=== PATIENT | female | born 2000 | race Caucasian/White ===

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

== ENCOUNTER 2020-09-26 09:33 | Outpatient (CLI) | payer MEDICAID, OTHER ==
--- NOTE | 2020-09-26 10:33 | XRAY Report ---
PROCEDURE: Hand 3 View RT INDICATIONS: RIGHT HAND CONTUSION TECHNIQUE: 3 views of the hand(s) acquired. COMPARISON: None FINDINGS: Bones: No fractures or dislocations. No suspicious bony lesions. Soft tissues: No suspicious soft tissue calcifications. IMPRESSION: No trauma found, source of pain is not identified. Reviewed by: Abraham Cox MD on 09/26/2020 10:32 AM PDT Approved by: Abraham Cox MD on 09/26/2020 10:32 AM PDT Station ID: [id number]
== END 2020-09-26 09:34 | disposition home or self-care (01) ==
LOC: DI.N 09:33
PROVIDERS: ATTEND Nurse Practitioner
DX: S60.221A Contusion of right hand, initial encounter (principal)

== ENCOUNTER 2020-11-05 08:00 | Outpatient (CLI) | payer MEDICAID, OTHER ==
[2020-11-05 18:34] LABS: CREATININE,URINE 144.5 mg/dL; MICROALBUM/CREATININE RATIO,UR 65.7 ug/mg (<30.0); MICROALBUMIN,URINE 9.5 mg/dL (0-300.0)
[2020-11-05 18:52] LABS: CALCIUM 9.3 mg/dL (8.5-10.3); CREATININE 0.8 mg/dL (0.4-1.0)
[2020-11-05 19:02] LABS: ESTIMATED AVERAGE GLUCOSE 111 mg/dL (70-100); HEMOGLOBIN A1c% 5.5 % (4.27-6.07)
== END 2020-11-05 23:59 | disposition home or self-care (01) ==
LOC: LAB.WCP 08:00
PROVIDERS: ATTEND Nurse Practitioner Family
DX: E11.9 Type 2 diabetes mellitus without complications (principal)
CPT/HCPCS: 36415; 80048; 82043; 82570; 83036

== ENCOUNTER 2021-03-09 08:00 | Outpatient (CLI) | payer MEDICAID, OTHER ==
[2021-03-09 18:11] LABS: BUN - BLOOD UREA NITROGEN 9 mg/dL (6-20); CALCIUM 9.6 mg/dL (8.5-10.3); CARBON DIOXIDE - CO2 23 mmol/L (21-32); CHLORIDE 108 mmol/L (101-111); CHOL/HDL RATIO 5.1 (<4.4); CHOLESTEROL 193 mg/dL; CREATININE 0.7 mg/dL (0.4-1.0); GFR - MDRD 107 (>89); GLUCOSE 111 mg/dL (70-100); HDL CHOLESTEROL 38 mg/dL; LDL CHOLESTEROL,CALCULATED 145 mg/dL; LDL/HDL RATIO 3.8 (<4.4); POTASSIUM 4.1 mmol/L (3.5-5.0); SODIUM 141 mmol/L (135-145); TRIGLYCERIDES 51 mg/dL; VLDL CHOLESTEROL 10 mg/dL
[2021-03-09 20:49] LABS: ESTIMATED AVERAGE GLUCOSE 120 mg/dL (70-100); HEMOGLOBIN A1c% 5.8 % (4.27-6.07)
[2021-03-09 22:27] LABS: NEISSERIA GONORRHOEAE DNA NEGATIVE (NEGATIVE); TRICHOMONAS VAGINALIS DNA NEGATIVE (NEGATIVE)
[2021-03-09 22:42] LABS: CHLAMYDIA TRACHOMATIS DNA POSITIVE (NEGATIVE)
[2021-03-10 15:46] LABS: HIV AG/AB 4TH GEN NON-REACTIVE (NON-REACTIVE)
[2021-03-12 16:01] LABS: HSV 1 IGG TYPE SPECIFIC AB <0.90 index; HSV 2 IGG TYPE SPECIFIC AB <0.90 index
== END 2021-03-09 23:59 | disposition home or self-care (01) ==
LOC: LAB.WCP 08:00
PROVIDERS: ATTEND Physician Assistant Medical
DX: Z72.89 Other problems related to lifestyle (principal); Z20.2 Contact with and (suspected) exposure to infections with a predominantly sexual mode of transmission; E11.9 Type 2 diabetes mellitus without complications; Z72.51 High risk heterosexual behavior
CPT/HCPCS: 36415; 80048; 80061; 81599; 83036; 83721; 86592; 86695; 86696; 87389; 87491; 87591; 87661

== ENCOUNTER 2021-04-18 02:00 | Outpatient (CLI) | payer MEDICAID | END 2021-04-18 02:01 | disposition EMS.NT | LOC: EMS 02:00 | DX: M25.561 Pain in right knee (principal) ==

== ENCOUNTER 2021-05-28 10:45 | Outpatient (CLI) | payer MEDICAID ==
--- NOTE | 2021-05-28 14:34 | MRI Report ---
PROCEDURE: Knee RT W/O INDICATIONS: RIGHT KNEE PAIN TECHNIQUE: Noncontrast sagittal PD fast spin echo and T2 fast spin echo with fat saturation, sagittal 3-D gradie nt sequence with fat saturation; coronal T1 spin echo and PD fast spin echo with fat saturation, and axial PD fast spin echo with fat saturation through the knee. COMPARISON: None. FINDINGS: Image quality: Excellent. Menisci: There is a bucket-handle tear of the medial meniscus with displacement of the bucket-handle fragment laterally into the intercondylar notch. Lateral meniscus is intact. Cruciate ligaments: The cruciate ligament is moderately attenuated and demonstrates mild posterior b owing. Posterior cruciate ligament is intact. Medial structures: The medial collateral ligament appears intact. Visualized portions of the pes ans erinus tendons appear normal. No abnormal bursal fluid. Lateral structures: The lateral collateral ligament demonstrates moderate T2 signal elevation at the femoral origin. The long and short heads of the biceps femoris tendon appear intact. The popliteus tendon appears normal. Iliotibial band appears normal. Anterior structures: The quadriceps and patellar tendons appear intact. Patellar alignment is shaun l. No femoral trochlear dysplasia or ventral trochlear prominence. No edema in the infrapatellar fa t pad. Bones and cartilage: Mild ill-defined T2 signal elevation within the medial tibial plateau posteriorl y, consistent with contusion. Joint space: There is a moderate knee joint effusion. No Santiago's cyst. Normal appearing synovial pl icae are incidentally noted. IMPRESSION: 1. Partial thickness anterior cruciate ligament tear. 2. Bucket-handle tear of medial meniscus. 3. Partial-thickness lateral collateral ligament tear. 4. Knee joint effusion. 5. Contusion within the medial tibial plateau. Reviewed by: Anastasia Wall MD on 05/28/2021 2:32 PM PST Approved by: Anastasia Wall MD on 05/28/2021 2:32 PM PST Station ID: [id number]
== END 2021-05-28 10:46 | disposition home or self-care (01) ==
LOC: DI 10:45
PROVIDERS: ATTEND Physician Assistant Medical
DX: S83.511A Sprain of anterior cruciate ligament of right knee, initial encounter (principal); S83.211A Bucket-handle tear of medial meniscus, current injury, right knee, initial encounter; S83.421A Sprain of lateral collateral ligament of right knee, initial encounter; S80.02XA Contusion of left knee, initial encounter; M25.461 Effusion, right knee

== ENCOUNTER 2021-06-30 08:00 | Outpatient (CLI) | payer MEDICAID ==
--- NOTE | 2021-06-30 16:27 | XRAY Report ---
PROCEDURE: Knee 4 View RT INDICATIONS: SPRAIN RIGHT KNEE TECHNIQUE: 4 views of the right knee(s) were acquired. COMPARISON: None. FINDINGS: Bones: No fractures or dislocations. No suspicious bony lesions. Soft tissues: Mild joint effusion. No suspicious soft tissue calcifications. IMPRESSION: Mild effusion. No visualized acute fracture or dislocation. However, occult injury canno t be excluded. Recommend short interval imaging follow-up in 7-10 days as clinically indicated for ad ditional evaluation. Reviewed by: Isabel Handley MD on 06/30/2021 4:25 PM PST Approved by: Isabel Handley MD on 06/30/2021 4:25 PM PST Station ID: [id number]
== END 2021-06-30 23:59 ==
LOC: DI.WOS 08:00
PROVIDERS: ATTEND Physician Assistant
DX: M25.461 Effusion, right knee (principal)

== ENCOUNTER 2021-08-28 08:00 | Outpatient (CLI) | payer MEDICAID ==
[2021-08-28 20:39] LABS: BACTERIAL VAGINOSIS DNA POSITIVE (NEGATIVE); CANDIDA GLABRATA DNA NEGATIVE (NEGATIVE); CANDIDA GROUP DNA POSITIVE (NEGATIVE); CANDIDA KRUSEI DNA NEGATIVE (NEGATIVE); TRICHOMONAS VAGINALIS DNA NEGATIVE (NEGATIVE)
[2021-08-28 21:24] LABS: CHLAMYDIA TRACHOMATIS DNA NEGATIVE (NEGATIVE); NEISSERIA GONORRHOEAE DNA NEGATIVE (NEGATIVE); TRICHOMONAS VAGINALIS DNA NEGATIVE (NEGATIVE)
== END 2021-08-28 23:59 | disposition home or self-care (01) ==
LOC: LAB.WCP 08:00
PROVIDERS: ATTEND Physician Assistant
DX: N89.8 Other specified noninflammatory disorders of vagina (principal)
CPT/HCPCS: 87491; 87591; 87661; 87801

== ENCOUNTER 2021-11-27 18:20 | Outpatient (CLI) | payer MEDICAID ==
[2021-11-27 23:08] LABS: CHLAMYDIA TRACHOMATIS DNA NEGATIVE (NEGATIVE); NEISSERIA GONORRHOEAE DNA NEGATIVE (NEGATIVE); TRICHOMONAS VAGINALIS DNA NEGATIVE (NEGATIVE)
== END 2021-11-27 18:21 | disposition home or self-care (01) ==
LOC: LAB 18:20
PROVIDERS: ATTEND Physician Assistant Medical
DX: Z20.2 Contact with and (suspected) exposure to infections with a predominantly sexual mode of transmission (principal)
CPT/HCPCS: 87491; 87591; 87661

== ENCOUNTER 2021-12-15 15:54 | Outpatient (CLI) | payer MEDICAID ==
--- NOTE | 2021-12-16 17:59 | Ultrasound Report ---
PROCEDURE: Pelvic w/Transvaginal INDICATIONS: [place]OR[place] TECHNIQUE: Real-time scanning was performed of the pelvic organs, with image documentation. Additional endovagi nal scanning was necessary due to incomplete visualization of the adnexal and endometrial structures by transabdominal scanning. COMPARISON: None. FINDINGS: No pathologic free abdominal or pelvic fluid. Uterus: Uterus is retroverted, normal in size at 8.1 x 3.4 x 4.6 cm. The endometrium measures 8.8 m m in combined thickness. Ovaries: Right ovary measures 3.3 x 2.8 x 2.4 cm with a ovarian volume of 11.5 mL. Left ovary measur es 3.5 x 2.1 x 2.4 cm with an ovarian volume of 9.4 mL. Both ovaries have greater than 12 small folli cles, which can support a clinical diagnosis of polycystic ovary syndrome IMPRESSION: 1. The appearance of the ovaries with support a clinical diagnosis of polycystic ovary syndrome. 2. Unremarkable appearance of the uterus. Reviewed by: Mathew Beebe MD on 12/16/2021 5:57 PM PDT Approved by: Mathew Beebe MD on 12/16/2021 5:57 PM PDT Station ID: [id number]
== END 2021-12-15 15:55 | disposition home or self-care (01) ==
LOC: DI 15:54
PROVIDERS: ATTEND Physician Assistant Medical
DX: N92.1 Excessive and frequent menstruation with irregular cycle (principal)

== ENCOUNTER 2022-07-28 08:53 | Outpatient (CLI) | payer MEDICAID ==
[2022-07-28 11:58] LABS: ALBUMIN 4.1 g/dL (3.2-5.5); ALKALINE PHOSPHATASE 52 IU/L (42-121); ALT ALANINE AMINOTRANSFERASE 28 IU/L (10-60); AST ASPARTATE AMINOTRANSFERASE 21 IU/L (10-42); BILIRUBIN,TOTAL 0.8 mg/dL (0.2-1.0); BUN - BLOOD UREA NITROGEN 12 mg/dL (6-20); CALCIUM 9.5 mg/dL (8.5-10.3); CARBON DIOXIDE - CO2 27 mmol/L (21-32); CHLORIDE 102 mmol/L (101-111); CHOL/HDL RATIO 4.5 (<4.4); CHOLESTEROL 166 mg/dL; CREATININE 0.8 mg/dL (0.4-1.0); GFR - MDRD 90 (>89); GLUCOSE 121 mg/dL (70-100); HDL CHOLESTEROL 37 mg/dL; LDL CHOLESTEROL,CALCULATED 110 mg/dL; POTASSIUM 4.4 mmol/L (3.5-5.0); SODIUM 139 mmol/L (135-145); TOTAL PROTEIN 8.1 g/dL (6.7-8.2); TRIGLYCERIDES 97 mg/dL; VLDL CHOLESTEROL 19 mg/dL
[2022-07-28 20:47] LABS: ESTIMATED AVERAGE GLUCOSE 137 mg/dL (70-100); HEMOGLOBIN A1c% 6.4 % (4.27-6.07)
== END 2022-07-28 08:54 | disposition home or self-care (01) ==
LOC: LAB.N 08:53
PROVIDERS: ATTEND Physician Assistant Medical
DX: E11.9 Type 2 diabetes mellitus without complications (principal)
CPT/HCPCS: 36415; 80053; 80061; 83036; 83721

== ENCOUNTER 2022-09-07 16:50 | Outpatient (CLI) | payer MEDICAID | END 2022-09-07 23:59 | disposition home or self-care (01) | LOC: LAB.WCP 16:50 | PROVIDERS: ATTEND Physician Assistant Medical | DX: R35.0 Frequency of micturition (principal) | CPT/HCPCS: 87086; 87181 ==

== ENCOUNTER 2022-09-13 18:58 | Emergency (ER) | payer MEDICAID ==
[2022-09-13 20:03] LABS: B. PARAPERTUSSIS- RESP PCR PAN NOT DETECTED; B. PERTUSSIS- RESP PCR PANEL NOT DETECTED; C. PNEUMONIAE- RESP PCR PANEL NOT DETECTED; CORONAVIRUS 229E-RESP PCR NOT DETECTED; CORONAVIRUS HKU1-RESP PCR NOT DETECTED; CORONAVIRUS NL63-RESP PCR NOT DETECTED; CORONAVIRUS OC43-RESP PCR NOT DETECTED; HUMAN METAPNEUMOVIRUS NOT DETECTED; INFLUENZA A- RESP PCR PANEL NOT DETECTED; INFLUENZA B - RESP PCR PANEL NOT DETECTED; M. PNEUMONIAE- RESP PCR PANEL NOT DETECTED; PARAINFLUENZA VIRUS 1 NOT DETECTED; PARAINFLUENZA VIRUS 2 NOT DETECTED; PARAINFLUENZA VIRUS 3 NOT DETECTED; PARAINFLUENZA VIRUS 4 NOT DETECTED; RHINOVIRUS/ENTEROVIRUS DETECTED; RSV- RESP PCR PANEL NOT DETECTED; SARS-CoV-2 -RESP PCR PANEL NOT DETECTED
[2022-09-13 20:16] LABS: BILIRUBIN,URINE NEGATIVE (NEGATIVE); GLUCOSE, URINE (UA) NEGATIVE (NEGATIVE); KETONES,URINE (UA) NEGATIVE (NEGATIVE); LEUKOCYTE ESTERASE, URINE MODERATE (NEGATIVE); NITRITE,URINE NEGATIVE (NEGATIVE); OCCULT BLOOD,URINE LARGE (NEGATIVE); PROTEIN,URINE 100 mg/dL (NEGATIVE); UROBILINOGEN,URINE 0.2 (NORMAL) E.U./dL (NORMAL)
[2022-09-13 20:18] LABS: CLARITY,URINE CLOUDY (CLEAR); HCG UR QUAL NEGATIVE
[2022-09-13 20:33] LABS: BACTERIA,URINE Many /HPF (None Seen); RBC,URINE TNTC /HPF (0-5); SQUAMOUS EPITHELIAL CELL,UR FEW Squamous (<= Few); WBC CLUMPS,URINE PRESENT; WBC,URINE >25 /HPF (0-5)
--- NOTE | 2022-09-13 21:59 | ED Physician Documentation ---
History of Present Illness - Stated complaint Stated Complaint: BODYACHES/PX - Chief complaint Chief Complaint: General - History obtained from History obtained from: Patient - Additonal information Additional information: HPI from patient. Patient complains of 1 to 2 days of urinary frequency, burning dysuria, generalized myalgias, generalized headache. She has not measured her temperature at home but has felt as if she has a fever with chills alternating with sweats. Patient says she was recently treated for chlamydia with one-time dose of 1 g of Zithromax. She was given this medication 2 days ago although she says that test was performed 1 or 2 weeks ago. Review of Systems Constitutional: reports: Chills, Myalgias, Sweats Respiratory: denies: Dyspnea, Cough GI: reports: Reviewed and negative : reports: Dysuria, Frequency Musculoskeletal: denies: Back pain Neurologic: reports: Headache PD PAST MEDICAL HISTORY - Past Medical History Past Medical History: Yes Endocrine/Autoimmune: Type 2 diabetes Derm: Other - Past Surgical History Past Surgical History: No - Present Medications Home Medications: Ambulatory Orders Medication Instructions Recorded Confirmed Medroxyprogesterone Acetate 150 mg IM ONCE 06/27/19 06/27/19 [Depo-Provera] Metformin HCl [Metformin HCl ER] 2,000 mg PO DAILY 06/27/19 06/27/19 Nitrofurantoin [Macrobid] 100 mg PO BID #10 cap 09/13/22 - Allergies Allergies/Adverse Reactions: Allergies Allergy/AdvReac Type Severity Reaction Status Date / Time No Known Drug Allergies Allergy Verified 09/13/22 19:02 - Social History Does the pt smoke?: No Smoking Status: Never smoker PD ED PE NORMAL - Vitals Vital signs reviewed: Yes - General General: Alert and oriented X 3, No acute distress, Well developed/nourished - HEENT HEENT: Moist mucous membranes - Neck Neck: Supple, no meningeal sign - Cardiac Cardiac: RRR, No murmur - Respiratory Respiratory: No respiratory distress, Clear bilaterally - Abdomen Abdomen: Soft, Non tender - Back Back: No CVA TTP Results - Vitals Vitals: Vital Signs - 24 hr 09/13/22 09/13/22 09/13/22 19:02 20:17 22:00 Temperature 38.0 C H Heart Rate 120 H 112 H 96 Respiratory 16 18 20 Rate Blood Pressure 180/90 H 166/111 H 160/113 H O2 Saturation 96 99 100 09/13/22 22:29 Temperature 36.9 C Heart Rate 100 Respiratory 23 Rate Blood Pressure 160/113 H O2 Saturation 100 Oxygen O2 Source Room air - Labs Labs: Laboratory Tests 09/13/22 09/13/22 19:06 20:11 Urine Color YELLOW Urine Clarity CLOUDY Urine pH 6.0 Ur Specific [place] 1.020 Urine Protein 100 H Urine Glucose (UA) NEGATIVE Urine Ketones NEGATIVE Urine Occult Blood LARGE H Urine Nitrite NEGATIVE Urine Bilirubin NEGATIVE Urine Urobilinogen 0.2 (NORMAL) Ur Leukocyte Esterase MODERATE H Urine RBC TNTC H Urine WBC >25 H Urine WBC Clumps PRESENT Ur Squamous Epith Cells FEW Squamous Urine Bacteria Many H Ur Microscopic Review INDICATED Urine Culture Comments INDICATED Urine HCG, Qual NEGATIVE Nasal Adenovirus (PCR) NOT DETECTED Nasal B. parapertussis DNA (PCR) NOT DETECTED Nasal Coronavir 229E PCR NOT DETECTED Nasal Coronavir HKU1 PCR NOT DETECTED Nasal Coronavir NL63 PCR NOT DETECTED Nasal Coronavir OC43 PCR NOT DETECTED Nasal Enterovir/Rhinovir PCR DETECTED A Nasal Influenza B PCR NOT DETECTED Nasal Influenza A PCR NOT DETECTED Nasal Parainfluen 1 PCR NOT DETECTED Nasal Parainfluen 2 PCR NOT DETECTED Nasal Parainfluen 3 PCR NOT DETECTED Nasal Parainfluen 4 PCR NOT DETECTED Nasal RSV (PCR) NOT DETECTED Nasal B.pertussis DNA PCR NOT DETECTED Nasal C.pneumoniae (PCR) NOT DETECTED Anders Human Metapneumo PCR NOT DETECTED Nasal M.pneumoniae (PCR) NOT DETECTED Nasal SARS-CoV-2 (PCR) NOT DETECTED PD Medical Decision Making - ED course Complexity details: considered differential, d/w patient ED course: Patient test positive for enterovirus/rhinovirus on respiratory PCR panel, negative for all other viruses that are tested on this panel. Her urinalysis has findings that are strongly suggestive of a urinary tract infection. Results were discussed with the patient. While her urinalysis could potentially be abnormal due to her recent diagnosis regarding STI, this would not preclude UTI and thus she is given Macrobid in the emergency department and a prescription for a 5-day course of Macrobid is electronically prescribed to her pharmacy of choice ([facility] pharmacy in [place]). She is also noted to be febrile in the emergency department, likely due to the URI. She is provided a work note Departure - Departure Disposition: 01 Home, Self Care Clinical Impression: Rhinovirus Urinary tract infection Qualifiers: Urinary tract infection type: acute cystitis Hematuria presence: with hematuria Qualified Code(s): N30.01 - Acute cystitis with hematuria Condition: Good Instructions: Cold Virus, ED UTI Cystitis Female Follow-Up: Danica Berrios PA-C [Primary Care Provider] - Within 1 week Prescriptions: Nitrofurantoin [Macrobid] 100 mg PO BID #10 cap Comments: The nasal swab tested positive for rhinovirus. This is considered a prime example of a "common cold" virus, and therefore it rarely causes any problems beyond the signs and symptoms associated with a common cold. However, be aware that it is contagious. The urinalysis performed tonight is strongly suggestive of a urinary tract infection. For this, you are given an antibiotic in the emergency department (Macrobid), and a prescription for a 5-day course of this antibiotic has been electronically submitted to the [facility] pharmacy in [place]. Forms: Activity restrictions Discharge Date/Time: 09/13/22 22:30
[2022-09-13] MEDS ORDERED: ACETAMINOPHEN 325 MG TABLET PO STA (22:13)
[2022-09-13] MEDS ORDERED: NITROFURANTOIN MACRO 100 MG CAPSULE PO STA (22:14)
[2022-09-13 22:23] VITALS: BP 160/113
== END 2022-09-13 22:30 | disposition home or self-care (01) ==
LOC: ED 18:58
DX: B34.8 Other viral infections of unspecified site (principal); N30.01 Acute cystitis with hematuria; E11.9 Type 2 diabetes mellitus without complications; Z79.84 Long term (current) use of oral hypoglycemic drugs
CPT/HCPCS: 81001; 81025; 87086; 87181; 87633; 99283; A9270; 81003

== ENCOUNTER 2022-12-10 02:41 | Emergency (ER) | payer MEDICAID ==
--- NOTE | 2022-12-10 03:57 | ED Physician Documentation ---
PD HPI HEENT - Stated complaint Stated Complaint: L EAR PX/THOATPX - Chief complaint Chief Complaint: Heent - History obtained from History obtained from: Patient - Additional information Additional information: HPI from patient. Patient complains of 3 to 4 days of sore throat and left ear pain. Denies fever. Complains of odynophagia (throat pain is worse with swallowing). No ameliorating factors. She notes mild, occasional moist cough. Review of Systems Constitutional: denies: Fever Ears: reports: Ear pain Throat: reports: Sore throat PD PAST MEDICAL HISTORY - Past Medical History Past Medical History: Yes Cardiovascular: Hypertension Endocrine/Autoimmune: Type 2 diabetes Derm: Other - Past Surgical History Past Surgical History: No - Present Medications Home Medications: Ambulatory Orders Medication Instructions Recorded Confirmed Medroxyprogesterone Acetate 150 mg IM ONCE 06/27/19 06/27/19 [Depo-Provera] Metformin HCl [Metformin HCl ER] 2,000 mg PO DAILY 06/27/19 06/27/19 Nitrofurantoin [Macrobid] 100 mg PO BID #10 cap 09/13/22 Amox/Clav 875/125 [Augmentin 1 tablet PO Q12H 7 Days #14 tablet 12/10/22 875/125 Tab] - Allergies Allergies/Adverse Reactions: Allergies Allergy/AdvReac Type Severity Reaction Status Date / Time No Known Drug Allergies Allergy Verified 12/10/22 04:20 - Social History Does the pt smoke?: No Smoking Status: Never smoker PD ED PE NORMAL - Vitals Vital signs reviewed: Yes - General General: Alert and oriented X 3, No acute distress, Well developed/nourished - HEENT HEENT: Moist mucous membranes, Other (Normal right TM) - Respiratory Respiratory: No respiratory distress, Clear bilaterally PD ED PE EXPANDED - HEENT HEENT: L TM red, L TM bulging, Pharyngeal erythema. No: Tonsillar exudate Results - Vitals Vitals: Vital Signs - 24 hr 12/10/22 12/10/22 12/10/22 02:53 04:00 04:49 Temperature 36.8 C Heart Rate 87 88 87 Respiratory 16 18 16 Rate Blood Pressure 202/143 H 213/153 H 198/136 H O2 Saturation 97 96 99 Oxygen O2 Source Room air PD Medical Decision Making - ED course Complexity details: considered differential, d/w patient ED course: Patient has posterior oropharyngeal erythema without exudate. She has a markedly erythematous left TM that is bulging. No evidence of TM rupture. We discussed options for testing and treatment. Specifically, I offered strep test via a throat swab as well as nasal swab to test for viruses including COVID and influenza. However, my recommendation is to initiate an antibiotic for the obvious left ear infection which would also cover strep should that be the cause. If we were to test for strep, and the results are positive, I would be prescribing the same antibiotic (Augmentin). However, if the strep were negative, the extent of the ear infection on exam is adequate cause for treat with an antibiotic, and thus I feel this obviates the need for a strep swab. Similarly, I do not feel that results of nasal respiratory swab would be likely to change the recommendation given the finding on the exam, specifically the left ear. Her signs and symptoms are limited to the throat and the ear, with a very mild, moist cough. COVID and influenza seem unlikely. Patient agrees with the treatment without testing approach that I have outlined above. She is given 875 mg of Augmentin p.o. She is also given 10 mg of Decadron p.o. for the pharyngitis, and a work excuse is provided. I electronically submitted a prescription for Augmentin to patient's pharmacy of choice. Incidental note is made of particularly elevated blood pressures in the emergency department. When I mention this to the patient, she says she supposed be taking lisinopril but stopped taking it a few months ago. She does not check her blood pressures at home. She does not recall her dose of lisinopril, but she says she is certain she still has lisinopril at home that is not . She is given 20 mg of lisinopril p.o. prior to discharge and I instructed her to resume taking her lisinopril as per the prescription. Departure - Departure Disposition: 01 Home, Self Care Clinical Impression: Pharyngitis Qualifiers: Pharyngitis/tonsillitis etiology: unspecified etiology Qualified Code(s): J02.9 - Acute pharyngitis, unspecified Otitis media Qualifiers: Otitis media type: suppurative Chronicity: acute Laterality: left Recurrence: non-recurrent Spontaneous tympanic membrane rupture: without spontaneous rupture Qualified Code(s): H66.002 - Acute suppurative otitis media without spontaneous rupture of ear drum, left ear Hypertension Qualifiers: Hypertension type: primary hypertension Qualified Code(s): I10 - Essential (primary) hypertension Condition: Good Instructions: ED Hypertension Conf Out Of Control, ED Otitis Media Acute Adult Prescriptions: Amox/Clav 875/125 [Augmentin 875/125 Tab] 1 tablet PO Q12H 7 Days #14 tablet Comments: On the exam, your throat does indeed look inflamed, as does the left eardrum. Inflammation of the eardrum correlates with middle ear infection. As we discussed, rather than testing for different organisms such as strep, I think it is quite reasonable to treat the ear infection with an antibiotic that would also cover strep should this be the cause. You are also given a one-time dose of steroid (Decadron) in the emergency department; as we discussed, this is for its anti-inflammatory property. It typically takes several hours to have an effect, but for many patients, it will decrease the amount of inflammation and swelling of the throat which, in turn, can help with the throat pain. However, you certainly should also take an [id number] pain medicine such as Tylenol or ibuprofen as needed as per label instructions for ongoing pain. A prescription for the antibiotic has been electronically submitted to the [facility] pharmacy in [place]. Lastly, your blood pressure was very high in the emergency department. You are given a dose of lisinopril (20 mg) in the emergency department. It is very important that you resume taking your lisinopril as had been previously prescribed. Contact your primary care provider when the office opens in the morning to arrange for next available appointment for reevaluation, particularly of the high blood pressure. Forms: Activity restrictions Discharge Date/Time: 12/10/22 04:49
[2022-12-10] MEDS ORDERED: CHERRY SYRUP 10 ML UDC PO ONE (04:26)
[2022-12-10] MEDS ORDERED: AMOX/CLAV 875 MG/125 MG TABLET PO STA (04:26)
[2022-12-10] MEDS ORDERED: DEXAMETHASONE 10 MG/ML VIAL PO STA (04:26)
[2022-12-10] MEDS ORDERED: lisinopriL 5 MG TABLET PO STA (04:32)
[2022-12-10 04:51] VITALS: BP 198/136
== END 2022-12-10 04:49 | disposition home or self-care (01) ==
LOC: ED 02:41
DX: J02.9 Acute pharyngitis, unspecified (principal); H66.002 Acute suppurative otitis media without spontaneous rupture of ear drum, left ear; I10 Essential (primary) hypertension
CPT/HCPCS: 99282; 99284; A9270

== ENCOUNTER 2023-08-18 08:00 | Outpatient (CLI) | payer MEDICAID ==
[2023-08-18 23:34] LABS: CHLAMYDIA TRACHOMATIS DNA NEGATIVE (NEGATIVE); NEISSERIA GONORRHOEAE DNA NEGATIVE (NEGATIVE); TRICHOMONAS VAGINALIS DNA NEGATIVE (NEGATIVE)
== END 2023-08-18 23:59 | disposition home or self-care (01) ==
LOC: LAB.WCP 08:00
PROVIDERS: ATTEND Physician Assistant Medical
DX: A74.9 Chlamydial infection, unspecified (principal)
CPT/HCPCS: 87491; 87591; 87661

== ENCOUNTER 2023-10-14 08:56 | Outpatient (CLI) | payer MEDICAID ==
[2023-10-14 12:28] LABS: BASOPHILS # (AUTO) 0.1 10^3/uL (0.0-0.1); BASOPHILS % (AUTO) 0.5 %; EOSINOPHILS # (AUTO) 0.2 10^3/uL (0.0-0.7); EOSINOPHILS % (AUTO) 1.9 %; HCT - HEMATOCRIT 46.8 % (37.0-47.0); HGB - HEMOGLOBIN 14.8 g/dL (12.0-16.0); LYMPHOCYTES # (AUTO) 2.4 10^3/uL (1.5-3.5); LYMPHOCYTES % (AUTO) 21.3 %; MEAN CORPUSCULAR HEMOGLOBIN 27.3 pg (27.0-31.0); MEAN CORPUSCULAR HGB CONC 31.6 g/dL (32.0-36.0); MEAN CORPUSCULAR VOLUME 86.3 fL (81.0-99.0); MEAN PLATELET VOLUME 9.3 fL (7.9-10.8); MONOCYTES # (AUTO) 0.6 10^3/uL (0.0-1.0); MONOCYTES % (AUTO) 5.2 %; NEUTROPHILS # (AUTO) 7.8 10^3/uL (1.5-6.6); NEUTROPHILS % (AUTO) 70.6 %; PLT - PLATELET COUNT 504 10^3/uL (130-450); RED BLOOD COUNT 5.42 10^6/uL (4.20-5.40); WHITE BLOOD COUNT 11.1 x10^3/uL (4.8-10.8)
[2023-10-14 13:00] LABS: THYROID STIMULATING HORMONE 0.94 uIU/mL (0.34-5.60)
[2023-10-14 13:06] LABS: ALBUMIN 4.5 g/dL (3.2-5.5); ALBUMIN/GLOBULIN RATIO 1.5 (1.0-2.2); ALKALINE PHOSPHATASE 51 IU/L (42-121); ALT ALANINE AMINOTRANSFERASE 56 IU/L (10-60); AST ASPARTATE AMINOTRANSFERASE 43 IU/L (10-42); BILIRUBIN,TOTAL 0.6 mg/dL (0.2-1.0); BUN - BLOOD UREA NITROGEN 13 mg/dL (6-20); CARBON DIOXIDE - CO2 26 mmol/L (21-32); CHLORIDE 104 mmol/L (101-111); CHOL/HDL RATIO 4.6 (<4.4); CHOLESTEROL 166 mg/dL; CREATININE 0.7 mg/dL (0.6-1.3); GFR - MDRD 104 (>89); GLUCOSE 195 mg/dL (74-104); HDL CHOLESTEROL 36 mg/dL; LDL CHOLESTEROL,CALCULATED 106 mg/dL; LDL/HDL RATIO 2.9 (<4.4); POTASSIUM 4.3 mmol/L (3.5-4.5); SODIUM 139 mmol/L (135-145); TOTAL PROTEIN 7.6 g/dL (6.4-8.9); TRIGLYCERIDES 119 mg/dL (48-352); VLDL CHOLESTEROL 24 mg/dL
[2023-10-14 14:39] LABS: ESTIMATED AVERAGE GLUCOSE 200 mg/dL (70-100); HEMOGLOBIN A1c% 8.6 % (4.27-6.07)
== END 2023-10-14 08:57 | disposition home or self-care (01) ==
LOC: LAB.N 08:56
PROVIDERS: ATTEND Physician Assistant Medical
DX: E78.5 Hyperlipidemia, unspecified (principal); E11.9 Type 2 diabetes mellitus without complications; N92.1 Excessive and frequent menstruation with irregular cycle; A74.9 Chlamydial infection, unspecified
CPT/HCPCS: 36415; 80053; 80061; 83036; 83721; 84443; 85025; 87491; 87591; 87661

== ENCOUNTER 2024-02-28 06:55 | Outpatient (CLI) | payer OTHER, MEDICAID | END 2024-02-28 06:56 | disposition EMS.NT | LOC: EMS 06:55 | DX: Z04.1 Encounter for examination and observation following transport accident (principal) ==

== ENCOUNTER 2024-02-28 12:13 | Emergency (ER) | payer OTHER, MEDICAID ==
[2024-02-28 12:28] VITALS: BP 160/90; O2SAT 100
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
[2024-02-28] MEDS: ACETAMINOPHEN 500 MG TABLET PO STA (16:17)
[2024-02-28] MEDS: KETOROLAC 30 MG/ML VIAL IM STA (16:18)
== END 2024-02-28 16:48 | disposition home or self-care (01) ==
LOC: ED 12:13
DX: M25.511 Pain in right shoulder (principal); V89.2XXA Person injured in unspecified motor-vehicle accident, traffic, initial encounter; Y93.89 Activity, other specified
CPT/HCPCS: 96372; 99283; A9270